=== PATIENT | female | born 1960 | race Caucasian/White ===

== ENCOUNTER 2020-04-26 12:28 | Inpatient (IN) ==
[2020-04-26] MEDS ORDERED: Ondansetron 4 MG/2 ML VIAL IVP PRN (16:15)
[2020-04-26] MEDS ORDERED: Naloxone 0.4 MG/ML INJ IVP PRN (16:15)
[2020-04-26] MEDS: Ampicillin/Sulbactam 3,000 MG in 0.9 % Sodium Chloride Mini Bag 100 ML IVPB SCH (18:08)
[2020-04-26] MEDS: 0.9 % Sodium Chloride 1,000 ML IVC SCH (18:08)
[2020-04-26] MEDS: *HR* Heparin 5,000 UNIT/ML VIAL SQ SCH (18:09)
[2020-04-26 20:25] LABS: Adenovirus Not Detected (Not Detect); Bordetella Pertussis Not Detected (Not Detect); Chlamydophila pneumoniae Not Detected (Not Detect); Coronavirus 229E Not Detected (Not Detect); Coronavirus HKU1 Not Detected (Not Detect); Coronavirus NL63 Not Detected (Not Detect); Coronavirus OC43 Not Detected (Not Detect); Human Metapneumovirus Not Detected (Not Detect); Human Rhinovirus/Enterovirus Not Detected (Not Detect); Influenza A Subtype 2009 H1 Not Detected (Not Detect); Influenza B Not Detected (Not Detect); Mycoplasma pneumoniae Not Detected (Not Detect); Parainfluenza Virus 1 Not Detected (Not Detect); Parainfluenza Virus 2 Not Detected (Not Detect); Parainfluenza Virus 3 Not Detected (Not Detect); Parainfluenza Virus 4 Not Detected (Not Detect); Respiratory Syncytial Virus Not Detected (Not Detect); SARS-CoV-2 Not Detected (Not Detect)
[2020-04-26] MEDS: Ipratropium/Albuterol Neb 3 ML IH SCH (21:39)
[2020-04-27] MEDS: Ampicillin/Sulbactam 3,000 MG in 0.9 % Sodium Chloride Mini Bag 100 ML IVPB SCH ×4 (01:44→17:29)
[2020-04-27] MEDS: 0.9 % Sodium Chloride 1,000 ML IVC SCH (01:45)
[2020-04-27] MEDS ORDERED: Acetaminophen IV 1,000 MG/100 ML INFUS..BTL IVPB ONE (03:00)
[2020-04-27] MEDS: Ipratropium/Albuterol Neb 3 ML IH SCH ×4 (04:08→21:39)
[2020-04-27] MEDS: *HR* Heparin 5,000 UNIT/ML VIAL SQ SCH ×2 (06:38→17:29)
[2020-04-27 07:49] LABS: Hematocrit 28.2 % (35.3-44.9); Mean Corpuscular HGB Conc 31.9 g/dL (31.6-35.5); Mean Corpuscular Hemoglobin 28.8 pg (28.0-33.3); Mean Corpuscular Volume 90.1 fL (83.0-100.0); Mean Platelet Volume 9.1 fL (9.4-12.4); Platelet Count 246 K/mcL (140-400); Red Blood Count 3.13 M/mcL (3.82-4.97); Red Cell Distribution Width 13.3 % (11.5-14.5); White Blood Count 18.7 K/mcL (4.3-11.1)
[2020-04-27 08:11] LABS: BUN/Creatinine Ratio 18 (6-26); Blood Urea Nitrogen 17 mg/dL (8-23); Calcium 9.3 mg/dL (8.6-10.3); Carbon Dioxide 23 mEq/L (23-29); Chloride 105 mEq/L (98-107); Glucose 102 mg/dL (70-105); Osmolality,Calculated 288 (280-300); Potassium 3.2 mEq/L (3.5-5.1); Sodium 138 mEq/L (136-145); eGFR For African Americans > 60 (> 60); eGFR For Non-African Americans 59 (> 60)
[2020-04-27] MEDS: Azithromycin 500 MG in 0.9 % Sodium Chloride 250 ML IVPB SCH (09:26)
[2020-04-27] MEDS: MethylPREDNISolone 40 MG/ML VIAL IVP SCH (09:26)
[2020-04-27] MEDS: Aspirin Enteric Coated 325 MG Tablet PO SCH (09:27)
[2020-04-27] MEDS: carvediloL 6.25 MG TABLET PO SCH ×2 (09:27→16:35)
[2020-04-27] MEDS: Loratadine 10 MG TABLET PO SCH (09:27)
[2020-04-27] MEDS: Sucralfate 1 GM TABLET PO SCH ×3 (09:27→20:02)
[2020-04-27] MEDS: rOPINIRole 1 MG TABLET PO SCH ×3 (09:28→20:03)
[2020-04-27] MEDS: FLUoxetine 20 MG CAPSULE PO SCH (09:28)
[2020-04-27] MEDS: Thiamine (B-1) 100 MG TABLET PO SCH (09:28)
[2020-04-27] MEDS ORDERED: Potassium Chloride 40 MEQ, Lidocaine 1% 2 ML in 0.9 % Sodium Chloride 500 ML IVPB ONE (10:09)
[2020-04-27] MEDS ORDERED: Acetaminophen 325 MG TABLET PO PRN (16:42)
[2020-04-27] MEDS: traZODone 50 MG TABLET PO SCH (20:03)
[2020-04-28] MEDS: Ampicillin/Sulbactam 3,000 MG in 0.9 % Sodium Chloride Mini Bag 100 ML IVPB SCH ×4 (00:29→16:50)
[2020-04-28] MEDS: Ipratropium/Albuterol Neb 3 ML IH SCH ×4 (04:49→21:43)
[2020-04-28] MEDS: *HR* Heparin 5,000 UNIT/ML VIAL SQ SCH ×2 (05:57→16:52)
[2020-04-28] MEDS: Thiamine (B-1) 100 MG TABLET PO SCH (10:10)
[2020-04-28] MEDS: FLUoxetine 20 MG CAPSULE PO SCH (10:10)
[2020-04-28] MEDS: rOPINIRole 1 MG TABLET PO SCH ×3 (10:10→19:51)
[2020-04-28] MEDS: Sucralfate 1 GM TABLET PO SCH ×3 (10:10→19:52)
[2020-04-28] MEDS: MethylPREDNISolone 40 MG/ML VIAL IVP SCH (10:11)
[2020-04-28] MEDS: Aspirin Enteric Coated 325 MG Tablet PO SCH (10:11)
[2020-04-28] MEDS: Loratadine 10 MG TABLET PO SCH (10:12)
[2020-04-28] MEDS: carvediloL 6.25 MG TABLET PO SCH ×2 (10:12→16:50)
[2020-04-28] MEDS: Azithromycin 500 MG in 0.9 % Sodium Chloride 250 ML IVPB SCH (10:13)
[2020-04-28 12:06] LABS: Basophils % 0.2 %; Eosinophils % 0.1 %; Hematocrit 28.5 % (35.3-44.9); Hemoglobin 8.9 g/dL (11.5-15.4); Immature Granulocytes % 2.4 % (0-4); Lymphocytes # 0.8 K/mcL (0.6-4.6); Mean Corpuscular HGB Conc 31.2 g/dL (31.6-35.5); Mean Corpuscular Hemoglobin 28.4 pg (28.0-33.3); Mean Corpuscular Volume 91.1 fL (83.0-100.0); Mean Platelet Volume 9.1 fL (9.4-12.4); Monocytes % 4.9 %; Neutrophils # 17.6 K/mcL (1.6-8.9); Platelet Count 272 K/mcL (140-400); Red Blood Count 3.13 M/mcL (3.82-4.97); Red Cell Distribution Width 13.9 % (11.5-14.5); Segmented Neutrophils % 88.4 %; White Blood Count 19.9 K/mcL (4.3-11.1)
[2020-04-28 12:24] LABS: BUN/Creatinine Ratio 20 (6-26); Blood Urea Nitrogen 19 mg/dL (8-23); Calcium 8.8 mg/dL (8.6-10.3); Carbon Dioxide 24 mEq/L (23-29); Chloride 106 mEq/L (98-107); Glucose 86 mg/dL (70-105); Osmolality,Calculated 286 (280-300); Potassium 3.9 mEq/L (3.5-5.1); Sodium 137 mEq/L (136-145); eGFR For African Americans > 60 (> 60); eGFR For Non-African Americans > 60 (> 60)
[2020-04-28] MEDS: traZODone 50 MG TABLET PO SCH (19:52)
[2020-04-29] MEDS: Ampicillin/Sulbactam 3,000 MG in 0.9 % Sodium Chloride Mini Bag 100 ML IVPB SCH ×4 (00:07→18:49)
[2020-04-29 01:45] LABS: Basophils % 0.1 %; Eosinophils # 0.1 K/mcL (0.0-0.6); Eosinophils % 0.3 %; Hematocrit 28.3 % (35.3-44.9); Hemoglobin 8.8 g/dL (11.5-15.4); Immature Granulocytes % 2.9 % (0-4); Lymphocytes # 0.9 K/mcL (0.6-4.6); Lymphocytes % 4.4 %; Mean Corpuscular HGB Conc 31.1 g/dL (31.6-35.5); Mean Corpuscular Hemoglobin 28.9 pg (28.0-33.3); Mean Corpuscular Volume 93.1 fL (83.0-100.0); Mean Platelet Volume 9.2 fL (9.4-12.4); Monocytes # 0.9 K/mcL (0.0-1.3); Monocytes % 4.4 %; Neutrophils # 18.1 K/mcL (1.6-8.9); Platelet Count 280 K/mcL (140-400); Red Blood Count 3.04 M/mcL (3.82-4.97); Red Cell Distribution Width 13.9 % (11.5-14.5); Segmented Neutrophils % 87.9 %; White Blood Count 20.6 K/mcL (4.3-11.1)
[2020-04-29 02:06] LABS: BUN/Creatinine Ratio 19 (6-26); Blood Urea Nitrogen 17 mg/dL (8-23); Calcium 9.2 mg/dL (8.6-10.3); Carbon Dioxide 24 mEq/L (23-29); Chloride 106 mEq/L (98-107); Glucose 98 mg/dL (70-105); Osmolality,Calculated 288 (280-300); Potassium 4.1 mEq/L (3.5-5.1); Sodium 138 mEq/L (136-145); eGFR For African Americans > 60 (> 60); eGFR For Non-African Americans > 60 (> 60)
[2020-04-29] MEDS: Ipratropium/Albuterol Neb 3 ML IH SCH ×3 (04:15→16:36)
[2020-04-29] MEDS: *HR* Heparin 5,000 UNIT/ML VIAL SQ SCH ×2 (05:41→18:48)
[2020-04-29] MEDS: Loratadine 10 MG TABLET PO SCH (09:13)
[2020-04-29] MEDS: rOPINIRole 1 MG TABLET PO SCH ×3 (09:13→19:39)
[2020-04-29] MEDS: Thiamine (B-1) 100 MG TABLET PO SCH (09:13)
[2020-04-29] MEDS: carvediloL 6.25 MG TABLET PO SCH ×2 (09:14→18:49)
[2020-04-29] MEDS: Aspirin Enteric Coated 325 MG Tablet PO SCH (09:14)
[2020-04-29] MEDS: FLUoxetine 20 MG CAPSULE PO SCH (09:14)
[2020-04-29] MEDS: Sucralfate 1 GM TABLET PO SCH ×3 (09:14→19:39)
[2020-04-29] MEDS: Ketorolac 15 MG/ML VIAL IVP PRN (09:14)
[2020-04-29] MEDS: Azithromycin 500 MG in 0.9 % Sodium Chloride 250 ML IVPB SCH (09:15)
[2020-04-29] MEDS: traZODone 50 MG TABLET PO SCH (19:40)
[2020-04-29] MEDS: Levalbuterol Neb 1.25 MG/3 ML IH SCH ×2 (21:12→23:48)
[2020-04-30] MEDS: Ampicillin/Sulbactam 3,000 MG in 0.9 % Sodium Chloride Mini Bag 100 ML IVPB SCH ×4 (00:06→17:25)
[2020-04-30 00:56] LABS: Basophils # 0.1 K/mcL (0.0-0.2); Basophils % 0.5 %; Eosinophils # 0.3 K/mcL (0.0-0.6); Eosinophils % 2.1 %; Hematocrit 27.6 % (35.3-44.9); Hemoglobin 8.7 g/dL (11.5-15.4); Immature Granulocytes % 4.8 % (0-4); Lymphocytes # 1.3 K/mcL (0.6-4.6); Mean Corpuscular HGB Conc 31.5 g/dL (31.6-35.5); Mean Corpuscular Hemoglobin 29.3 pg (28.0-33.3); Mean Corpuscular Volume 92.9 fL (83.0-100.0); Mean Platelet Volume 9.2 fL (9.4-12.4); Monocytes # 0.9 K/mcL (0.0-1.3); Monocytes % 6.5 %; Neutrophils # 10.9 K/mcL (1.6-8.9); Platelet Count 253 K/mcL (140-400); Red Blood Count 2.97 M/mcL (3.82-4.97); Red Cell Distribution Width 13.7 % (11.5-14.5); Segmented Neutrophils % 77.1 %; White Blood Count 14.1 K/mcL (4.3-11.1)
[2020-04-30 01:04] LABS: BUN/Creatinine Ratio 16 (6-26); Blood Urea Nitrogen 16 mg/dL (8-23); Calcium 8.8 mg/dL (8.6-10.3); Carbon Dioxide 25 mEq/L (23-29); Chloride 102 mEq/L (98-107); Glucose 88 mg/dL (70-105); Osmolality,Calculated 283 (280-300); Potassium 4.4 mEq/L (3.5-5.1); Sodium 136 mEq/L (136-145); eGFR For African Americans > 60 (> 60); eGFR For Non-African Americans 57 (> 60)
[2020-04-30 01:16] LABS: ABG Base Excess 1 mEq/L (-2 to 3); ABG HCO3 26 mEq/L (21-27); ABG Oxygen Saturation 95 % (95-98); ABG PCO2 43 mmHg (35-45); ABG PH 7.39 pH Units (7.32-7.45); ABG PO2 79 mmHg (85-104); ABG TCO2 27 mEq/L (20-26)
[2020-04-30] MEDS: Levalbuterol Neb 1.25 MG/3 ML IH SCH ×6 (03:38→20:06)
[2020-04-30] MEDS ORDERED: Acetaminophen 325 MG TABLET PO ONE (04:14)
[2020-04-30] MEDS: *HR* Heparin 5,000 UNIT/ML VIAL SQ SCH ×2 (06:12→17:24)
[2020-04-30] MEDS: Ketorolac 15 MG/ML VIAL IVP PRN ×2 (07:26→18:46)
[2020-04-30] MEDS: Azithromycin 500 MG in 0.9 % Sodium Chloride 250 ML IVPB SCH (07:28)
[2020-04-30] MEDS: Thiamine (B-1) 100 MG TABLET PO SCH (07:40)
[2020-04-30] MEDS: Loratadine 10 MG TABLET PO SCH (07:40)
[2020-04-30] MEDS: carvediloL 6.25 MG TABLET PO SCH ×2 (07:41→17:24)
[2020-04-30] MEDS: Aspirin Enteric Coated 325 MG Tablet PO SCH (07:41)
[2020-04-30] MEDS: rOPINIRole 1 MG TABLET PO SCH ×3 (07:41→20:40)
[2020-04-30] MEDS: Sucralfate 1 GM TABLET PO SCH ×3 (07:41→20:40)
[2020-04-30] MEDS: FLUoxetine 20 MG CAPSULE PO SCH (07:41)
[2020-04-30] MEDS ORDERED: Furosemide 20 MG/2 ML VIAL IVP ONE (10:50)
[2020-04-30] MEDS ORDERED: Perflutren Lipid Microsphere 1.3 ML in 0.9 % Sodium Chloride 8.7 ML IVP PRN (10:50)
[2020-04-30] MEDS: Vancomycin 1,500 MG/265 ML IV.SOLN IVPB SCH ×2 (12:00→22:47)
[2020-04-30] MEDS: predniSONE 20 MG TABLET PO SCH (12:16)
[2020-04-30] MEDS: traZODone 50 MG TABLET PO SCH (20:42)
[2020-05-01] MEDS: Levalbuterol Neb 1.25 MG/3 ML IH SCH ×7 (00:01→23:26)
[2020-05-01] MEDS: Ampicillin/Sulbactam 3,000 MG in 0.9 % Sodium Chloride Mini Bag 100 ML IVPB SCH ×4 (00:41→17:18)
[2020-05-01 02:37] LABS: Hematocrit 25.4 % (35.3-44.9); Hemoglobin 7.9 g/dL (11.5-15.4); Mean Corpuscular HGB Conc 31.1 g/dL (31.6-35.5); Mean Corpuscular Hemoglobin 28.2 pg (28.0-33.3); Mean Corpuscular Volume 90.7 fL (83.0-100.0); Mean Platelet Volume 9.3 fL (9.4-12.4); Platelet Count 261 K/mcL (140-400); Red Cell Distribution Width 13.4 % (11.5-14.5); White Blood Count 13.1 K/mcL (4.3-11.1)
[2020-05-01] MEDS: Ketorolac 15 MG/ML VIAL IVP PRN (02:45)
[2020-05-01 04:57] LABS: Adenovirus Not Detected (Not Detect); Bordetella Pertussis Not Detected (Not Detect); Chlamydophila pneumoniae Not Detected (Not Detect); Coronavirus 229E Not Detected (Not Detect); Coronavirus HKU1 Not Detected (Not Detect); Coronavirus NL63 Not Detected (Not Detect); Coronavirus OC43 Not Detected (Not Detect); Human Metapneumovirus Not Detected (Not Detect); Human Rhinovirus/Enterovirus Not Detected (Not Detect); Influenza A Subtype 2009 H1 Not Detected (Not Detect); Influenza B Not Detected (Not Detect); Mycoplasma pneumoniae Not Detected (Not Detect); Parainfluenza Virus 1 Not Detected (Not Detect); Parainfluenza Virus 2 Not Detected (Not Detect); Parainfluenza Virus 3 Not Detected (Not Detect); Parainfluenza Virus 4 Not Detected (Not Detect); Respiratory Syncytial Virus Not Detected (Not Detect); SARS-CoV-2 Not Detected (Not Detect)
[2020-05-01] MEDS: *HR* Heparin 5,000 UNIT/ML VIAL SQ SCH ×2 (05:31→17:17)
[2020-05-01] MEDS: Aspirin Enteric Coated 325 MG Tablet PO SCH (08:06)
[2020-05-01] MEDS: FLUoxetine 20 MG CAPSULE PO SCH (08:06)
[2020-05-01] MEDS: Thiamine (B-1) 100 MG TABLET PO SCH (08:06)
[2020-05-01] MEDS: predniSONE 20 MG TABLET PO SCH (08:06)
[2020-05-01] MEDS: Loratadine 10 MG TABLET PO SCH (08:07)
[2020-05-01] MEDS: rOPINIRole 1 MG TABLET PO SCH ×3 (08:07→20:17)
[2020-05-01] MEDS: Sucralfate 1 GM TABLET PO SCH ×3 (08:07→20:18)
[2020-05-01] MEDS: Azithromycin 500 MG in 0.9 % Sodium Chloride 250 ML IVPB SCH (08:07)
[2020-05-01] MEDS: carvediloL 6.25 MG TABLET PO SCH ×2 (08:07→17:17)
[2020-05-01] MEDS ORDERED: Furosemide 20 MG/2 ML VIAL IVP ONE (10:30)
[2020-05-01] MEDS: Vancomycin 1,500 MG/265 ML IV.SOLN IVPB SCH ×2 (11:24→22:56)
[2020-05-01 12:39] LABS: eGFR For African Americans > 60 (> 60); eGFR For Non-African Americans > 60 (> 60)
[2020-05-01] MEDS: Furosemide 20 MG/2 ML VIAL IVP SCH (20:16)
[2020-05-01] MEDS: traZODone 50 MG TABLET PO SCH (20:17)
[2020-05-02] MEDS: Ampicillin/Sulbactam 3,000 MG in 0.9 % Sodium Chloride Mini Bag 100 ML IVPB SCH ×3 (00:54→12:12)
[2020-05-02 01:36] LABS: Hemoglobin 8.7 g/dL (11.5-15.4); Mean Corpuscular HGB Conc 31.1 g/dL (31.6-35.5); Mean Corpuscular Hemoglobin 28.2 pg (28.0-33.3); Mean Corpuscular Volume 90.9 fL (83.0-100.0); Platelet Count 323 K/mcL (140-400); Red Blood Count 3.08 M/mcL (3.82-4.97); Red Cell Distribution Width 13.5 % (11.5-14.5); White Blood Count 14.9 K/mcL (4.3-11.1)
[2020-05-02] MEDS: Levalbuterol Neb 1.25 MG/3 ML IH SCH ×6 (03:56→23:35)
[2020-05-02] MEDS: *HR* Heparin 5,000 UNIT/ML VIAL SQ SCH ×2 (05:26→17:46)
[2020-05-02] MEDS: Aspirin Enteric Coated 325 MG Tablet PO SCH (08:18)
[2020-05-02] MEDS: Loratadine 10 MG TABLET PO SCH (08:19)
[2020-05-02] MEDS: predniSONE 20 MG TABLET PO SCH (08:19)
[2020-05-02] MEDS: FLUoxetine 20 MG CAPSULE PO SCH (08:19)
[2020-05-02] MEDS: rOPINIRole 1 MG TABLET PO SCH ×3 (08:19→21:47)
[2020-05-02] MEDS: Furosemide 20 MG/2 ML VIAL IVP SCH ×2 (08:19→21:47)
[2020-05-02] MEDS: Sucralfate 1 GM TABLET PO SCH ×3 (08:19→21:47)
[2020-05-02] MEDS: Thiamine (B-1) 100 MG TABLET PO SCH (08:19)
[2020-05-02] MEDS: carvediloL 6.25 MG TABLET PO SCH ×2 (08:19→17:46)
[2020-05-02 09:49] LABS: eGFR For African Americans > 60 (> 60); eGFR For Non-African Americans > 60 (> 60)
[2020-05-02] MEDS ORDERED: Isovue-370 500 ML BOTTLE IVP ONE ×2 (11:36→11:59)
[2020-05-02] MEDS: GuaiFENesin/Dextromethorphan TABLET PO SCH ×2 (12:12→21:46)
[2020-05-02] MEDS ORDERED: Piperacillin/Tazobactam 3.375 GM in 0.9 % Sodium Chloride Mini Bag 100 ML IVPB SCH (13:00)
[2020-05-02] MEDS: Vancomycin 1,500 MG/265 ML IV.SOLN IVPB SCH (13:10)
[2020-05-02] MEDS: Piperacillin/Tazobactam 3.375 GM in 0.9 % Sodium Chloride Mini Bag 100 ML IVPB SCH (17:46)
[2020-05-02] MEDS: MethylPREDNISolone 40 MG/ML VIAL IVP SCH (17:46)
[2020-05-02] MEDS: traZODone 50 MG TABLET PO SCH (21:48)
[2020-05-03 00:45] LABS: Hematocrit 27.9 % (35.3-44.9); Hemoglobin 8.9 g/dL (11.5-15.4); Mean Corpuscular HGB Conc 31.9 g/dL (31.6-35.5); Mean Corpuscular Volume 90.9 fL (83.0-100.0); Mean Platelet Volume 9.2 fL (9.4-12.4); Platelet Count 329 K/mcL (140-400); Red Blood Count 3.07 M/mcL (3.82-4.97); Red Cell Distribution Width 13.2 % (11.5-14.5); White Blood Count 9.6 K/mcL (4.3-11.1)
[2020-05-03 00:58] LABS: BUN/Creatinine Ratio 18 (6-26); Blood Urea Nitrogen 15 mg/dL (8-23); Calcium 8.9 mg/dL (8.6-10.3); Carbon Dioxide 31 mEq/L (23-29); Chloride 95 mEq/L (98-107); Glucose 119 mg/dL (70-105); Osmolality,Calculated 282 (280-300); Sodium 135 mEq/L (136-145); eGFR For African Americans > 60 (> 60); eGFR For Non-African Americans > 60 (> 60)
[2020-05-03 01:39] LABS: Vancomycin,Trough 25 mcg/mL (5-10)
[2020-05-03] MEDS: Vancomycin 1,500 MG/265 ML IV.SOLN IVPB SCH (01:48)
[2020-05-03] MEDS: Piperacillin/Tazobactam 3.375 GM in 0.9 % Sodium Chloride Mini Bag 100 ML IVPB SCH ×3 (01:59→17:22)
[2020-05-03] MEDS: Levalbuterol Neb 1.25 MG/3 ML IH SCH ×6 (03:26→23:56)
[2020-05-03 04:27] LABS: Bilirubin,Urine Negative (Negative); Blood,Urine Negative (Negative); Clarity,Urine Clear (Clear); Color,Urine Colorless (Yellow); Glucose,Urine (UA) Normal (Normal); Ketones,Urine Negative (Negative); Leukocyte Esterase,Urine Negative (Negative); Nitrite,Urine Negative (Negative); Protein,Urine Negative (Neg-Trace); Specific Gravity,Urine 1.016 (1.010-1.025); Urobilinogen,Urine Normal (Normal)
[2020-05-03] MEDS: MethylPREDNISolone 40 MG/ML VIAL IVP SCH ×2 (05:49→17:21)
[2020-05-03] MEDS: *HR* Heparin 5,000 UNIT/ML VIAL SQ SCH ×2 (05:49→17:22)
[2020-05-03] MEDS: Furosemide 20 MG/2 ML VIAL IVP SCH ×2 (09:39→20:58)
[2020-05-03] MEDS ORDERED: *HR* FentaNYL (PF) 100 MCG/2 ML VIAL ONE (12:51)
[2020-05-03] MEDS ORDERED: *HR* Propofol 200 MG/20 ML VIAL IVP ONE (12:51)
[2020-05-03] MEDS ORDERED: Lidocaine -MPF 4% 5 ML AMPUL ONE (12:52)
[2020-05-03] MEDS ORDERED: Ondansetron 4 MG/2 ML VIAL ONE (12:54)
[2020-05-03] MEDS ORDERED: Lidocaine -MPF 2% 2 ML VIAL ONE (12:54)
[2020-05-03] MEDS ORDERED: Dexamethasone 4 MG/ML VIAL ONE (12:54)
[2020-05-03] MEDS ORDERED: *HR* HYDROmorphone PF 0.5 MG/0.5 ML SYRINGE IVP PRN (12:57)
[2020-05-03] MEDS ORDERED: *HR* Promethazine 25 MG/ML VIAL IVP PRN (12:57)
[2020-05-03] MEDS ORDERED: Ondansetron 4 MG/2 ML VIAL IVP PRN (12:57)
[2020-05-03] MEDS ORDERED: *HR* OxyCODONE Immed Rel 5 MG TABLET PO PRN (12:57)
[2020-05-03] MEDS: carvediloL 6.25 MG TABLET PO SCH ×2 (14:41→17:21)
[2020-05-03] MEDS: Sucralfate 1 GM TABLET PO SCH ×3 (14:41→20:57)
[2020-05-03] MEDS: Thiamine (B-1) 100 MG TABLET PO SCH (15:22)
[2020-05-03] MEDS: GuaiFENesin/Dextromethorphan TABLET PO SCH ×2 (15:22→20:57)
[2020-05-03] MEDS: Loratadine 10 MG TABLET PO SCH (15:22)
[2020-05-03] MEDS: FLUoxetine 20 MG CAPSULE PO SCH (15:22)
[2020-05-03] MEDS: rOPINIRole 1 MG TABLET PO SCH ×3 (15:22→20:57)
[2020-05-03] MEDS: Aspirin Enteric Coated 325 MG Tablet PO SCH (15:22)
[2020-05-03 16:25] LABS: Source of Body Fluid LUL BAL; Source of Body Fluid RML BAL
[2020-05-03] MEDS: traZODone 50 MG TABLET PO SCH (20:57)
[2020-05-03 21:32] LABS: Appearance of Body Fluid Clear (Clear); Volume of Body Fluid 15 mL
[2020-05-03 21:43] LABS: Appearance of Body Fluid Clear (Clear); Volume of Body Fluid 18 mL
[2020-05-04 02:03] LABS: Hematocrit 29.1 % (35.3-44.9); Hemoglobin 8.9 g/dL (11.5-15.4); Mean Corpuscular HGB Conc 30.6 g/dL (31.6-35.5); Mean Corpuscular Hemoglobin 27.7 pg (28.0-33.3); Mean Corpuscular Volume 90.7 fL (83.0-100.0); Mean Platelet Volume 9.1 fL (9.4-12.4); Platelet Count 375 K/mcL (140-400); Red Blood Count 3.21 M/mcL (3.82-4.97); Red Cell Distribution Width 13.2 % (11.5-14.5); White Blood Count 10.4 K/mcL (4.3-11.1)
[2020-05-04] MEDS: Piperacillin/Tazobactam 3.375 GM in 0.9 % Sodium Chloride Mini Bag 100 ML IVPB SCH ×3 (02:23→17:35)
[2020-05-04 02:28] LABS: BUN/Creatinine Ratio 22 (6-26); Blood Urea Nitrogen 19 mg/dL (8-23); Calcium 8.8 mg/dL (8.6-10.3); Carbon Dioxide 29 mEq/L (23-29); Chloride 98 mEq/L (98-107); Glucose 126 mg/dL (70-105); Osmolality,Calculated 286 (280-300); Potassium 3.8 mEq/L (3.5-5.1); Sodium 136 mEq/L (136-145); eGFR For African Americans > 60 (> 60); eGFR For Non-African Americans > 60 (> 60)
[2020-05-04] MEDS: Levalbuterol Neb 1.25 MG/3 ML IH SCH ×6 (04:18→23:54)
[2020-05-04] MEDS: *HR* Heparin 5,000 UNIT/ML VIAL SQ SCH ×2 (05:31→16:33)
[2020-05-04] MEDS: MethylPREDNISolone 40 MG/ML VIAL IVP SCH ×2 (05:31→16:33)
[2020-05-04] MEDS: Sucralfate 1 GM TABLET PO SCH ×3 (07:44→20:59)
[2020-05-04] MEDS: Loratadine 10 MG TABLET PO SCH (07:44)
[2020-05-04] MEDS: carvediloL 6.25 MG TABLET PO SCH ×2 (07:45→16:33)
[2020-05-04] MEDS: Aspirin Enteric Coated 325 MG Tablet PO SCH (07:45)
[2020-05-04] MEDS: rOPINIRole 1 MG TABLET PO SCH ×3 (07:45→21:00)
[2020-05-04] MEDS: Thiamine (B-1) 100 MG TABLET PO SCH (07:45)
[2020-05-04] MEDS: GuaiFENesin/Dextromethorphan TABLET PO SCH ×2 (07:45→20:59)
[2020-05-04] MEDS: FLUoxetine 20 MG CAPSULE PO SCH (07:45)
[2020-05-04] MEDS: Furosemide 20 MG/2 ML VIAL IVP SCH (07:45)
[2020-05-04] MEDS: traZODone 50 MG TABLET PO SCH (20:59)
[2020-05-04] MEDS: Furosemide 40 MG/4 ML VIAL IVP SCH (21:00)
[2020-05-05] MEDS: Piperacillin/Tazobactam 3.375 GM in 0.9 % Sodium Chloride Mini Bag 100 ML IVPB SCH ×3 (01:43→16:57)
[2020-05-05] MEDS: Levalbuterol Neb 1.25 MG/3 ML IH SCH ×6 (03:52→23:20)
[2020-05-05 03:55] LABS: BUN/Creatinine Ratio 22 (6-26); Blood Urea Nitrogen 19 mg/dL (8-23); Carbon Dioxide 29 mEq/L (23-29); Chloride 100 mEq/L (98-107); Glucose 105 mg/dL (70-105); Osmolality,Calculated 287 (280-300); Sodium 137 mEq/L (136-145); eGFR For African Americans > 60 (> 60); eGFR For Non-African Americans > 60 (> 60)
[2020-05-05] MEDS: Vancomycin 1,500 MG/265 ML IV.SOLN IVPB SCH (05:47)
[2020-05-05] MEDS: MethylPREDNISolone 40 MG/ML VIAL IVP SCH ×2 (05:50→16:57)
[2020-05-05] MEDS: *HR* Heparin 5,000 UNIT/ML VIAL SQ SCH ×2 (05:51→16:57)
[2020-05-05 06:25] LABS: Hematocrit 30.2 % (35.3-44.9); Red Blood Count 3.26 M/mcL (3.82-4.97); White Blood Count 13.4 K/mcL (4.3-11.1)
[2020-05-05 06:26] LABS: Mean Corpuscular HGB Conc 29.8 g/dL (31.6-35.5); Mean Corpuscular Hemoglobin 27.6 pg (28.0-33.3); Mean Corpuscular Volume 92.6 fL (83.0-100.0); Mean Platelet Volume 9.2 fL (9.4-12.4); Platelet Count 434 K/mcL (140-400); Red Cell Distribution Width 13.3 % (11.5-14.5)
[2020-05-05] MEDS: GuaiFENesin/Dextromethorphan TABLET PO SCH ×2 (08:50→20:00)
[2020-05-05] MEDS: Sucralfate 1 GM TABLET PO SCH ×3 (08:51→20:00)
[2020-05-05] MEDS: carvediloL 6.25 MG TABLET PO SCH ×2 (08:51→16:56)
[2020-05-05] MEDS: Loratadine 10 MG TABLET PO SCH (08:51)
[2020-05-05] MEDS: Thiamine (B-1) 100 MG TABLET PO SCH (08:52)
[2020-05-05] MEDS: FLUoxetine 20 MG CAPSULE PO SCH (08:52)
[2020-05-05] MEDS: rOPINIRole 1 MG TABLET PO SCH ×3 (08:52→20:00)
[2020-05-05] MEDS: Aspirin Enteric Coated 325 MG Tablet PO SCH (08:52)
[2020-05-05] MEDS: Furosemide 40 MG/4 ML VIAL IVP SCH ×2 (08:53→16:58)
[2020-05-05 12:22] LABS: ANA IgG by ELISA DETECTED (None Detected); Serine Protease-3 Antibody 1 AU/mL (0-19)
[2020-05-05] MEDS: traZODone 50 MG TABLET PO SCH (19:59)
[2020-05-06] MEDS: Piperacillin/Tazobactam 3.375 GM in 0.9 % Sodium Chloride Mini Bag 100 ML IVPB SCH ×3 (02:50→18:34)
[2020-05-06] MEDS: Levalbuterol Neb 1.25 MG/3 ML IH SCH ×6 (03:57→23:32)
[2020-05-06 05:04] LABS: Influenza A PCR Body Fluid NOT DETECTED; Influenza B PCR Body Fluid NOT DETECTED; RVP Body Fluid Source RML BAL
[2020-05-06] MEDS: Vancomycin 1,500 MG/265 ML IV.SOLN IVPB SCH (05:39)
[2020-05-06] MEDS: *HR* Heparin 5,000 UNIT/ML VIAL SQ SCH ×2 (05:40→18:34)
[2020-05-06] MEDS: MethylPREDNISolone 40 MG/ML VIAL IVP SCH ×2 (05:40→18:35)
[2020-05-06] MEDS: Furosemide 40 MG/4 ML VIAL IVP SCH (05:40)
[2020-05-06] MEDS: Aspirin Enteric Coated 325 MG Tablet PO SCH (08:44)
[2020-05-06] MEDS: carvediloL 6.25 MG TABLET PO SCH ×2 (08:44→16:27)
[2020-05-06] MEDS: Loratadine 10 MG TABLET PO SCH (08:44)
[2020-05-06] MEDS: Thiamine (B-1) 100 MG TABLET PO SCH (08:44)
[2020-05-06] MEDS: rOPINIRole 1 MG TABLET PO SCH ×3 (08:44→19:35)
[2020-05-06] MEDS: GuaiFENesin/Dextromethorphan TABLET PO SCH ×2 (08:44→19:34)
[2020-05-06] MEDS: FLUoxetine 20 MG CAPSULE PO SCH (08:44)
[2020-05-06] MEDS: Sucralfate 1 GM TABLET PO SCH ×3 (08:44→19:35)
[2020-05-06 08:54] LABS: ANA HEp-2 IgG IFA DETECTED (<1:80); Anti Nuclear Ab Pattern HOMOGENEOUS
[2020-05-06 09:32] LABS: RSV PCR Body Fluid NOT DETECTED
[2020-05-06 11:19] LABS: Hematocrit 34.1 % (35.3-44.9); Mean Corpuscular HGB Conc 31.4 g/dL (31.6-35.5); Mean Corpuscular Hemoglobin 28.2 pg (28.0-33.3); Mean Corpuscular Volume 89.7 fL (83.0-100.0); Platelet Count 499 K/mcL (140-400); Red Cell Distribution Width 13.2 % (11.5-14.5)
[2020-05-06 11:21] LABS: Hemoglobin 10.7 g/dL (11.5-15.4); White Blood Count 15.9 K/mcL (4.3-11.1)
[2020-05-06 11:32] LABS: BUN/Creatinine Ratio 24 (6-26); Blood Urea Nitrogen 27 mg/dL (8-23); Calcium 9.7 mg/dL (8.6-10.3); Carbon Dioxide 31 mEq/L (23-29); Chloride 93 mEq/L (98-107); Glucose 98 mg/dL (70-105); Osmolality,Calculated 285 (280-300); Potassium 3.8 mEq/L (3.5-5.1); Sodium 135 mEq/L (136-145); eGFR For African Americans > 60 (> 60); eGFR For Non-African Americans 50 (> 60)
[2020-05-06] MEDS: Furosemide 40 MG TABLET PO SCH (16:27)
[2020-05-06] MEDS: traZODone 50 MG TABLET PO SCH (19:35)
[2020-05-07 00:34] LABS: Influenza A PCR Body Fluid NOT DETECTED; Influenza B PCR Body Fluid NOT DETECTED; RVP Body Fluid Source BAL
[2020-05-07] MEDS: Piperacillin/Tazobactam 3.375 GM in 0.9 % Sodium Chloride Mini Bag 100 ML IVPB SCH ×3 (02:34→17:01)
[2020-05-07] MEDS: Levalbuterol Neb 1.25 MG/3 ML IH SCH ×4 (03:43→15:20)
[2020-05-07 04:51] LABS: Hematocrit 32.3 % (35.3-44.9); Hemoglobin 10.3 g/dL (11.5-15.4); Mean Corpuscular HGB Conc 31.9 g/dL (31.6-35.5); Mean Corpuscular Hemoglobin 29.1 pg (28.0-33.3); Mean Corpuscular Volume 91.2 fL (83.0-100.0); Mean Platelet Volume 8.8 fL (9.4-12.4); Platelet Count 448 K/mcL (140-400); Red Blood Count 3.54 M/mcL (3.82-4.97); Red Cell Distribution Width 13.1 % (11.5-14.5); White Blood Count 15.3 K/mcL (4.3-11.1)
[2020-05-07] MEDS: MethylPREDNISolone 40 MG/ML VIAL IVP SCH ×2 (05:34→17:01)
[2020-05-07] MEDS: *HR* Heparin 5,000 UNIT/ML VIAL SQ SCH ×2 (05:35→17:01)
[2020-05-07] MEDS: Vancomycin 1,500 MG/265 ML IV.SOLN IVPB SCH (05:35)
[2020-05-07 07:24] LABS: RSV PCR Body Fluid NOT DETECTED
[2020-05-07] MEDS: Furosemide 40 MG TABLET PO SCH ×2 (08:52→15:51)
[2020-05-07] MEDS: FLUoxetine 20 MG CAPSULE PO SCH (08:52)
[2020-05-07] MEDS: Loratadine 10 MG TABLET PO SCH (08:52)
[2020-05-07] MEDS: rOPINIRole 1 MG TABLET PO SCH ×2 (08:52→15:51)
[2020-05-07] MEDS: GuaiFENesin/Dextromethorphan TABLET PO SCH (08:52)
[2020-05-07] MEDS: Aspirin Enteric Coated 325 MG Tablet PO SCH (08:52)
[2020-05-07] MEDS: Sucralfate 1 GM TABLET PO SCH ×2 (08:52→15:51)
[2020-05-07] MEDS: Thiamine (B-1) 100 MG TABLET PO SCH (08:52)
[2020-05-07] MEDS: carvediloL 6.25 MG TABLET PO SCH ×2 (08:52→15:51)
[2020-05-07 15:55] VITALS: BP 136/86
[2020-05-08 17:49] LABS: HSV Source BAL LUL; HSV Source BAL RML
== END 2020-05-07 18:20 | disposition home health service (06) | DRG 720 ==
LOC: 2ANU → SUATTDRO 14:06 → 2ANU 15:56 → SUATTDRO 04-28 17:40
PROVIDERS: ADMIT Internal Medicine; ATTEND Internal Medicine